=== PATIENT | male | born 1990 | race Caucasian/White ===

== ENCOUNTER 2016-10-21 04:40 | Inpatient (IN) | payer OTHER ==
--- NOTE | ~2016-10-21 | DS ---
Unit #: [id number] #: [id number] Patient: SNOW LÓPEZ [id number] [facility] [address] [place] [address] [id number] MR#: [id number] NAME: SNOW LÓPEZ ROOM: [facility] Age: 26 Sex: M Admission Date: 10/21/2016 : 1990 Discharge Date: 10/21/2016 Attending Physician: Gavin Benavidez M.D. Primary Care Physician: Kerry Stephens DISCHARGE SUMMARY REASON FOR ADMISSION Snow is a 26-year-old man with a history of opioid dependence who returned to the hospital about 2 months after his last admission reporting a relapse on IV heroin and occasional illicit benzodiazepines. He had no suicidal plan or intent, although, he had fleeting suicidal ideation. He was readmitted for stabilization. DIAGNOSTIC STUDIES LABORATORY RESULTS: None obtained. HOSPITAL COURSE The patient was admitted and placed on the opioid detox protocol. The following evening, the patient went to the nurses' station demanding discharge against medical advice after he was interviewed by the nurses and housekeeping/laundry supervisor, the patient was deemed able to give a reliable contract for safety and although, he was encouraged to stay for further treatment. He elected to discharge against medical advice. DISCHARGE DIAGNOSES AXIS I: Opioid dependence with withdrawal, uncomplicated. AXIS II: No diagnosis. AXIS III: Pulmonary stenosis. AXIS IV: AXIS V: DISCHARGE INSTRUCTIONS Follow up with chemical dependence program of your choice. DISCHARGE MEDICATIONS None. CONDITION AT DISCHARGE Improved. PROGNOSIS Fair. DIET AND ACTIVITY Ad bárbara. Unit #: [id number] #: [id number] Patient: SNOW LÓPEZ Dictated by... Justin Alberts/evens TD: 12/20/2016 20:49 JOB #: [id number] DISCHARGE SUMMARY Page 1 of 1 X Gavin Benavidez MD X DISCHARGE SUMMARY
--- NOTE | ~2016-10-21 | HP ---
Unit #: [id number] #: [id number] Patient: SNOW LÓPEZ [id number] [facility] [address] [place] [address] [id number] MR#: [id number] NAME: SNOW LÓPEZ ROOM: P171 Age: 26 Sex: M Admission Date: 10/21/2016 : 1990 Attending Physician: Gavin Benavidez M.D. Admitting Physician: Gavin Benavidez M.D. Primary Care Physician: Kerry Stephens HISTORY AND PHYSICAL HISTORY OF PRESENT ILLNESS Snow is a 26 year old admitted to [facility] because of his polysubstance abuse which includes IV heroin. PAST MEDICAL HISTORY 1. Long history of opioid abuse to include IV heroin. 2. History of pulmonary stenosis. PAST SURGICAL HISTORY Nothing reported. ALLERGIES No known drug allergies. SOCIAL HISTORY Smokes 1 pack per day. Drinks alcohol rarely. Admits to a long history of illicit substance abuse to include heroin and abusing benzodiazepines. FAMILY HISTORY Medically noncontributory. REVIEW OF SYSTEMS CONSTITUTIONAL: No fever or chills. HEENT: Denies any sore throat, ear pain or runny nose. CARDIOVASCULAR: Denies chest pain, irregular heart rhythm or palpitations. CHEST: Denies shortness of breath or cough. No hemoptysis. GASTROINTESTINAL: Denies nausea, vomiting, diarrhea or chronic constipation. ENDOCRINE: Denies history of increased thirst or urination. No recent significant weight loss or gain. GENITOURINARY: Denies dysuria, frequency, or hematuria. SKIN: Denies any rashes. HEMATOLOGIC: Denies history of increased bleeding or bruising. MUSCULOSKELETAL: Denies any hot, swollen joints. No generalized muscle pain. NEUROLOGIC: Denies problems with vision or speech. No frequent, severe headaches. No numbness, tingling or weakness in any extremities. Denies loss of bladder or bowel control. CURRENT MEDICATIONS Detox protocol. PHYSICAL EXAMINATION Unit #: [id number] #: [id number] Patient: SNOW LÓPEZ GENERAL: Alert, well-nourished, in no apparent distress. VITAL SIGNS: Blood pressure 120/70, heart rate 80, respirations 16, temperature 98.6. WEIGHT: 180. HEIGHT: 6 feet 0 inches. SKIN: Warm and dry without rash or lesion. HEENT: Normocephalic. TMs not viewed. Oral and nasal passages clear. Conjunctivae clear. PERRLA. EOMs intact. DENTAL: Full set of braces that appear to be in good condition. Patient tells me that they have been on for "years." NECK: Supple without lymphadenopathy or thyromegaly. HEART: Rate and rhythm is regular with a 3/6 systolic murmur. LUNGS: Clear. ABDOMEN: Soft, nontender. : Not done. EXTREMITIES: No evidence of cyanosis, clubbing or edema. Moves all without focal deficit. NEUROLOGICAL: Grossly within normal limits. Cranial Nerves: II: Visual contreras are intact. III, IV AND : Extraocular movements are intact. Pupils are equal, round and reactive to light. V: Facial sensation is grossly normal. VII: Facial movements and expression are normal. VIII: Auditory acuity grossly intact. IX, X: Uvula is midline. Phonation is normal. XI: Patient shrugs shoulders and turns head normally. XII: Tongue protrudes in the midline. Sensory and Motor Function: Sensory and motor sensation is grossly normal. Motor: moves all extremities well. Coordination: Gait is normal. Deep Tendon Reflexes: Intact. IMPRESSION Psychiatric admission. RECOMMENDATIONS PSYCHIATRIC: Per psychiatrist. MEDICAL: See no contraindications to participate in facility's activities. MEDICAL PROGNOSIS Good. MEDICAL CONDITION Stable. Dictated by... Anthony HuangALeigh-Sergey. for Justin Combs/joshua TD: 10/21/2016 23:04 JOB #: [id number] Unit #: [id number] #: [id number] Patient: SNOW LÓPEZ HISTORY AND PHYSICAL Page 1 of 1 X Eladia Thorne HISTORY AND PHYSICAL
--- NOTE | ~2016-10-21 | PA ---
Unit #: [id number] #: [id number] Patient: SNOW THOMPSON [id number] [facility] [address] [place] [address] [id number] MR#: [id number] NAME: SNOW THOMPSON ROOM: P171 Age: 26 Sex: M Admission Date: 10/21/2016 : 1990 Date of Assessment: 10/21/2016 Attending Physician: Gavin Benavidez M.D. Admitting Physician: Gavin Benavidez M.D. Primary Care Physician: Kerry Stephens PSYCHIATRIC ASSESSMENT DATE OF SERVICE 10/21/2016. INFORMANTS The patient, reliable and [facility] records, reliable. CHIEF COMPLAINT Daily heroin use. HISTORY OF PRESENT ILLNESS Snow Thompson is a 26-year-old man with previous admission to our facility, who reports he is using up to 0.5 g of heroin IV daily and takes occasional benzodiazepines on an illicit basis. He reported suicidal thoughts with no plan or intent and was admitted for stabilization. PAST PSYCHIATRIC HISTORY One previous admission to this facility in August of this year and previous treatment at [facility]. He has no other psychiatric diagnosis or treatment plan. FAMILY PSYCHIATRIC HISTORY No reported family history of mental illness or substance abuse. SOCIAL HISTORY The patient is unemployed and currently has a GED. He lives with family and has significant financial difficulties. PAST MEDICAL HISTORY History of pulmonary stenosis. MEDICATIONS None currently. ALLERGIES No known medication allergies. SUBSTANCE USE HISTORY As noted above and in previous assessments. MENTAL STATUS EXAMINATION The patient presented as a mildly disheveled man who appeared older than his stated age. Vital signs were pulse 93, temperature 98.8, blood pressure 132/73, respirations 14. His speech was soft, sparse, but easily Unit #: [id number] #: [id number] Patient: SNOW THOMPSON understood. Musculoskeletal examination was calm. His mood was irritable with a congruent affect. He was alert and fully oriented. Memory and concentration were intact. Thought processes were logical with no active psychosis. He denied active suicidal ideation, but could contract only in the hospital. Insight and judgment, fair. Fund of knowledge and abstraction, fair. ASSETS AND LIABILITIES The patient knows local resources and is presenting voluntarily for treatment. Liabilities include difficulty maintaining sobriety and erratic employment. ADMITTING DIAGNOSES AXIS I: Opioid dependence with withdrawal, uncomplicated, F11.23. AXIS II: No diagnosis. AXIS III: History of pulmonary stenosis, active opioid withdrawal. AXIS IV: AXIS V: PSYCHIATRIC PLAN The patient was admitted and placed on the opioid detox protocol. He declined initiation of antidepressant medication. Baseline laboratory studies and physical examination will be repeated. Treatment goals are establishment of sobriety, improvement in insight, and improvement in coping skills. DISCHARGE PLANNING Follow up with psychiatric hospital [facility] for chemical dependence. ESTIMATED LENGTH OF STAY 5 days. Dictated by... Gavin Benavidez M.D. XAVIER/evens TD: 10/22/2016 03:07 JOB #: [id number] PSYCHIATRIC ASSESSMENT Page 1 of 1 X Gavin Benavidez MD X PSYCHIATRIC ASSESSMENT
[2016-10-21 12:25] LABS: BASOPHIL# 0.1 X10e3 (0-0.3); BASOPHIL% 0.5 % (0-2.5); EOSINOPHIL# 0.2 X10e3 (0-0.7); EOSINOPHIL% 1.9 % (0.0-7.0); HEMATOCRIT 40.9 % (38.0-50.0); HEMOGLOBIN 13.3 gm/dL (13.0-16.0); LYMPHOCYTE# 1.8 X10e3 (1.0-3.5); LYMPHOCYTE% 14.2 % (17.0-45.0); MEAN CELL VOLUME 88.3 FL (83-96); MEAN CORPUSCULAR HEMOGLOBIN 28.8 PG (28-34); MEAN CORPUSCULAR HGB CONC 32.6 g/dL (30-36); MONOCYTE# 1.4 X10e3 (0-1.0); MONOCYTE% 10.8 % (3.0-12.0); NEUTROPHIL# 9.3 X10e3 (1.5-7.1); NEUTROPHIL% 72.6 % (40-75); PLATELET COUNT 213 X10e3 (140-420); RED BLOOD COUNT 4.64 X10e (3.90-5.60); RED CELL DISTRIBUTION WIDTH 12.7 % (11.0-15.5); WHITE BLOOD COUNT 12.7 X10e3 (4.0-10.5)
[2016-10-21 12:26] LABS: DIFF IND NO
[2016-10-21 12:34] LABS: ALBUMIN SERUM 3.7 g/dL (3.5-5.0); ALKALINE PHOSPHATASE 69 U/L (32-92); ALT (SGPT) 86 U/L (10-40); AST (SGOT) 63 U/L (10-42); BILIRUBIN,TOTAL 0.4 mg/dL (0.2-2.0); BLOOD UREA NITROGEN 17 mg/dL (9-23); BUN/CREATININE RATIO 18.88; CALCIUM SERUM 9.2 mg/dL (8.4-10.2); CARBON DIOXIDE 30 mmol/L (22-31); CHLORIDE 104 mmol/L (100-111); CREATININE SERUM 0.9 mg/dL (0.6-1.4); GLOM FILT RATE Estimated ABOVE60 mL/min (>60); GLUCOSE FASTING 117 mg/dL (70-110); POTASSIUM 4.2 mmol/L (3.5-5.1); PROTEIN TOTAL SERUM 6.6 g/dL (6.0-8.3); SODIUM 138 mmol/L (135-145)
== END 2016-10-21 19:25 | disposition left against medical advice (07) | DRG 894 ==
LOC: P1E 04:40
PROVIDERS: Psychiatry & Neurology Psychiatry
PROC: HZ2ZZZZ Detoxification Services for Substance Abuse Treatment (ICD-10-PCS; principal; 2016-10-21)
DX: F11.23 Opioid dependence with withdrawal (principal); F17.200 Nicotine dependence, unspecified, uncomplicated; F19.10 Other psychoactive substance abuse, uncomplicated
CPT/HCPCS: 80053; 85025